=== PATIENT | female | born 1995 | race African-American/Black ===

== ENCOUNTER 2016-08-25 00:27 | Emergency (ER) | payer OTHER ==
[2016-08-25] MEDS ORDERED: OXYCODONE-ACETAMINOPHEN 5-325 MG TABLET PO ONE (02:10)
[2016-08-25] MEDS ORDERED: HYDROCODONE/ACETAMINOPHEN 5-325 MG 6 TAB/DSPK PO PRN (02:10)
[2016-08-25] MEDS ORDERED: PENICILLIN V POTASSIUM 500 MG TABLET PO ONE (02:11)
--- NOTE | 2016-08-25 02:16 | ER Document Report ---
HPI - HPI Patient complains to provider of: tooth pain Pain Level: 5 Context: Patient is a 21-year-old female comes emergency department with chief complaint of tooth pain, worse on the right lower posterior aspect, symptoms have been intermittent for several weeks. Patient unsure of fracture, denies history of the same. Pain radiates towards her right ear. She denies sore throat, neck pain, fever, injury. LMP within the past 2 weeks. - DERM Skin Color: Normal, Antares Past Medical History - General Information source: Patient - Social History Smoking Status: Never Smoker Drug Abuse: None Lives with: Family Family History: Reviewed & Not Pertinent - Medical History Medical History: Negative Renal/ Medical History: Denies: Hx Peritoneal Dialysis Surgical Hx: Negative - Immunizations Immunizations up to date: Yes Hx Diphtheria, Pertussis, Tetanus Vaccination: Yes Vertical Provider Document - CONSTITUTIONAL General Appearance: WD/WN, No Apparent Distress - Patient sleeping, easily aroused - INFECTION CONTROL TRAVEL OUTSIDE OF THE [place] IN LAST 30 DAYS: No - HEENT HEENT: Atraumatic, Normocephalic Mouth Diagram: 1 - Gumline directly over the back of this tooth, difficult to see if there is a fracture, no abscess, gumline is erythematous, no other abnormalities noted in the oral cavity - NECK Neck: Normal Inspection - RESPIRATORY Respiratory: Breath Sounds Normal, No Respiratory Distress O2 Sat by Pulse Oximetry: 100 - CARDIOVASCULAR Cardiovascular: Regular Rate, Regular Rhythm - GI/ABDOMEN Gastrointestinal: Abdomen Soft, Abdomen Non-Tender Course - Vital Signs Vital signs: Temp Pulse Resp BP Pulse Ox 98.2 F 55 L 18 132/76 H 100 08/25/16 00:43 08/25/16 00:43 08/25/16 00:43 08/25/16 00:43 08/25/16 00:43 Discharge - Discharge Clinical Impression: Pain, dental Condition: Stable Disposition: HOME, SELF-CARE Additional Instructions: Take the pain medication as prescribed, take the antibiotic to completion. Follow up with the Dentist for additional management. Return to the ED for any concerning or worsening symptoms including facial swelling. Prescriptions: Hydrocodone/Acetaminophen [[place] 5-325 mg Tablet] 1 - 2 tab PO ASDIR #15 tablet Penicillin V Potassium [Penicillin Vk 500 mg Tablet] 500 mg PO BID #20 tablet Forms: Return to Work
[2016-08-25 02:36] VITALS: BP 112/65
== END 2016-08-25 02:30 | disposition home or self-care (01) ==
LOC: ER 00:27
DX: K08.89 Other specified disorders of teeth and supporting structures (principal)
CPT/HCPCS: 99282

== ENCOUNTER 2017-01-01 10:23 | Observation (INO) | payer OTHER ==
[2017-01-01] MEDS ORDERED: NORMAL SALINE 1000 ML 1,000 ML IV PRN (11:01)
[2017-01-01] MEDS ORDERED: ONDANSETRON 4 MG TAB.RAPDIS SL ONE (11:01)
--- NOTE | 2017-01-01 11:03 | ER Document Report ---
ED Medical Screen (RME) - General Chief Complaint: Abdominal Pain Stated Complaint: VOMITING Time Seen by Provider: 01/01/17 10:29 Mode of Arrival: Ambulatory Information source: Patient TRAVEL OUTSIDE OF THE [place] IN LAST 30 DAYS: No - HPI Patient complains to provider of: Nausea, vomiting Notes: 01/01/17 11:02 Patient is a 21-year-old female presenting to the emergency room today complaining of nausea with vomiting and diarrhea 3 days with crampy abdominal pain, no urinary symptoms, no fevers, no history of chronic abdominal illness, no sick contacts, no questionable food intake - Related Data Allergies/Adverse Reactions: No Known Allergies Allergy (Verified 01/01/17 10:28) Past Medical History - Social History Chew tobacco use (# tins/day): No Frequency of alcohol use: None Drug Abuse: None Renal/ Medical History: Denies: Hx Peritoneal Dialysis Surgical Hx: Negative - Immunizations Immunizations up to date: Yes Hx Diphtheria, Pertussis, Tetanus Vaccination: Yes History of Influenza Vaccine for 12/2016 - 05/2017 Season: No Physical Exam - Vital signs Vitals: Temp Pulse Resp BP Pulse Ox 98.8 F 79 22 H 122/72 98 01/01/17 10:27 01/01/17 10:27 01/01/17 10:27 01/01/17 10:27 01/01/17 10:27 Course - Vital Signs Vital signs: Temp Pulse Resp BP Pulse Ox 98.8 F 79 22 H 122/72 98 01/01/17 10:27 01/01/17 10:27 01/01/17 10:27 01/01/17 10:27 01/01/17 10:27
[2017-01-01 12:06] LABS: ABSOLUTE BASOPHILS # (AUTO) 0.1 10^3/uL (0.0-0.2); ABSOLUTE EOSINOPHILS # (AUTO) 0.1 10^3/uL (0.0-0.6); ABSOLUTE MONOCYTES (AUTO) 1.5 10^3/uL (0.1-1.4); BASOPHILS % (AUTO) 0.7 % (0-2); EOSINOPHILS % (AUTO) 0.3 % (0-6); HEMATOCRIT 41.3 % (36.0-47.0); HEMOGLOBIN 14.4 g/dL (12.0-15.5); HGB HCT DIFFERENCE 1.9; LYMPHOCYTES % (AUTO) 12.7 % (13-45); MEAN CORPUSCULAR HEMOGLOBIN 28.6 pg (27.0-33.4); MEAN CORPUSCULAR HGB CONC 34.8 g/dL (32.0-36.0); MEAN CORPUSCULAR VOLUME 82 fl (80-97); MONOCYTES % (AUTO) 9.8 % (3-13); RED BLOOD COUNT 5.04 10^6/uL (3.72-5.28); SEGMENTED NEUTROPHILS % (AUTO) 76.5 % (42-78); WHITE BLOOD COUNT 15.7 10^3/uL (4.0-10.5)
[2017-01-01 12:22] LABS: APPEARANCE,URINE SLIGHTLY-CLOUDY; BILIRUBIN,URINE SMALL (NEGATIVE); GLUCOSE, URINE NEGATIVE (NEGATIVE); KETONES,URINE 80 mg/dL (NEGATIVE); LEUKOCYTE ESTERASE,URINE NEGATIVE (NEGATIVE); NITRITE,URINE NEGATIVE (NEGATIVE); PROTEIN,URINE 30 mg/dL (NEGATIVE)
[2017-01-01 12:30] LABS: ALBUMIN 4.4 g/dL (3.5-5.0); ALKALINE PHOSPHATASE 102 U/L (38-126); ANION GAP 12 (5-19); BILIRUBIN,DIRECT 1.2 mg/dL (0.0-0.4); BILIRUBIN,TOTAL 2.4 mg/dL (0.2-1.3); BLOOD UREA NITROGEN 15 mg/dL (7-20); CALCIUM 9.2 mg/dL (8.4-10.2); CARBON DIOXIDE 27 mmol/L (22-30); CHLORIDE 99 mmol/L (98-107); CREATININE RESULT 0.66 mg/dL (0.52-1.25); GLUCOSE 90 mg/dL (75-110); LIPASE 64.5 U/L (23-300); SODIUM 137.8 mmol/L (137-145); TOTAL PROTEIN 7.9 g/dL (6.3-8.2)
--- NOTE | 2017-01-01 12:48 | ER Document Report ---
ED General - General Chief Complaint: Abdominal Pain Stated Complaint: VOMITING Time Seen by Provider: 01/01/17 10:29 Mode of Arrival: Ambulatory TRAVEL OUTSIDE OF THE [place] IN LAST 30 DAYS: No - HPI Notes: Patient is a 21-year-old female who presents the ED with generalized abdominal pain, nausea, vomiting 4 days. Patient states that she has only been vomiting when she tries to eat food. She is able to keep some fluids down, but has been trouble with that as well. Patient states that her pain is in her lower abdomen bilaterally as well as the upper left abdomen. Patient states that the pain feels cramping. Patient states that she has not had a bowel movement in about 4 days as well. Patient was treated with antibiotics and pain medication for a dental infection which she completed about 6 days ago, but she does continue take some of the pain medication. Patient states that she has noticed that her urine is colored as compared to her normal. She denies any recent illness, insect bite, questionable foods. Patient denies any GI medical history. Patient states that she does have back pain bilaterally that is described as an ache/dull and does not radiate. Abdominal pain does not radiate otherwise. Patient denies any vaginal discharge, odor, bleeding. Last menstrual period was early November. Denies any headache, fever, neck pain, URI, sore throat, chest pain, palpitations, syncope, cough, shortness of breath , wheeze, dyspnea, diarrhea, urinary retention, dysuria, hematuria, loss of control of bowel or bladder, numbness/tingling, saddle anesthesia, muscle paralysis/weakness, or rash. - Related Data Allergies/Adverse Reactions: No Known Allergies Allergy (Verified 01/01/17 10:28) Past Medical History - General Information source: Patient - Social History Smoking Status: Never Smoker Chew tobacco use (# tins/day): No Frequency of alcohol use: None Drug Abuse: None Family History: Reviewed & Not Pertinent Renal/ Medical History: Denies: Hx Peritoneal Dialysis Surgical Hx: Negative - Immunizations Immunizations up to date: Yes Hx Diphtheria, Pertussis, Tetanus Vaccination: Yes Review of Systems - Review of Systems Notes: REVIEW OF SYSTEMS: CONSTITUTIONAL : Denies fever, chills, or sweats. Denies recent illness. EENT: Denies eye, ear, throat, or mouth pain or symptoms. Denies nasal or sinus congestion or discharge. Denies throat, tongue, or mouth swelling or difficulty swallowing. CARDIOVASCULAR: Denies chest pain. Denies palpitations or racing or irregular heart beat. Denies ankle edema. RESPIRATORY: Denies cough, cold, or chest congestion. Denies shortness of breath, difficulty breathing, or wheezing. GASTROINTESTINAL: see hpi GENITOURINARY: see hpi FEMALE GENITOURINARY: Denies vaginal bleeding, heavy or abnormal periods, irregular periods. Denies vaginal discharge or odor. MUSCULOSKELETAL: Denies back or neck pain or stiffness. Denies joint pain or swelling. SKIN: Denies rash, lesions or sores. NEUROLOGICAL: Denies confusion or altered mental status. Denies passing out or loss of consciousness. Denies dizziness or lightheadedness. Denies headache. Denies weakness or paralysis or loss of use of either side. Denies problems with gait or speech. Denies sensory loss, numbness, or tingling. ALL OTHER SYSTEMS REVIEWED AND NEGATIVE. Dictation was performed using [employer] voice recognition software Physical Exam - Vital signs Vitals: Temp Pulse Resp BP Pulse Ox 98.8 F 79 22 H 122/72 98 01/01/17 10:27 01/01/17 10:27 01/01/17 10:27 01/01/17 10:27 01/01/17 10:27 Notes: PHYSICAL EXAMINATION: GENERAL: Well-appearing, well-nourished and in no acute distress. A&Ox4 HEAD: Atraumatic, normocephalic. EYES: Pupils equal round and reactive to light, extraocular movements intact, sclera anicteric, conjunctiva are normal. ENT: Nares patent and without discharge. oropharynx clear without exudates. No tonsilar hypertrophy or erythema. Moist mucous membranes. No sinus tenderness. NECK: Normal range of motion, supple without lymphadenopathy LUNGS: Breath sounds clear to auscultation bilaterally and equal. No wheezes rales or rhonchi. HEART: Regular rate and rhythm without murmurs, rubs, gallops. ABDOMEN: Soft, nondistended abdomen. No guarding, no rebound. No masses appreciated. Normal bowel sounds present. No CVA tenderness bilaterally. + generalized tenderness, mild. No rigidity. Musculoskeletal: LE's b/l: FROM to passive/active. Strength 5+/5. No focal deficit Back: FROM to passive/active. Strength 5+/5. No erythema, swelling, abscess, discharge, streaks, step-offs, or deformity noted. + mild tenderness to the soft tissue throughout the lower back b/l. Extremities: No cyanosis, clubbing, or edema b/l. Peripheral pulses 2+. Capillary refill less than 3 seconds. NEUROLOGICAL: Normal speech, normal gait. Normal sensory, motor exams PSYCH: Normal mood, normal affect. SKIN: Warm, Dry, normal turgor, no rashes or lesions noted. Course - Re-evaluation Re-evalutation: 01/01/17 17:11 Pt with abd pain, n/v Pt has not vomited in the ED LFT's very high Elevated wbc Reviewed with Dr. Molina INR pending Ammonia pending will call Dr. Molina once INR result returns. 01/01/17 17:[address] Molina, coags wnl. admit to hospital and he can consult. 01/01/17 17:[address] Nunez who accepted patient for admission. - Vital Signs Vital signs: Temp Pulse Resp BP Pulse Ox 98.8 F 79 22 H 122/72 98 01/01/17 10:27 01/01/17 10:27 01/01/17 10:27 01/01/17 10:27 01/01/17 10:27 - Laboratory Result Diagrams: 01/01/17 11:50 01/01/17 11:50 Laboratory results interpreted by me: 01/01/17 01/01/17 01/01/17 11:31 11:50 11:50 WBC 15.7 H Lymphocytes % 12.7 L Absolute Neutrophils 12.0 H Absolute Monocytes 1.5 H PT Total Bilirubin 2.4 H Direct Bilirubin 1.2 H AST 1661 H ALT 2133 H Urine Protein 30 H Urine Ketones 80 H Urine Bilirubin SMALL H Urine Urobilinogen 4.0 H Acetaminophen 01/01/17 01/01/17 11:50 16:32 WBC Lymphocytes % Absolute Neutrophils Absolute Monocytes PT 17.4 H Total Bilirubin Direct Bilirubin AST ALT Urine Protein Urine Ketones Urine Bilirubin Urine Urobilinogen Acetaminophen < 10 L Discharge - Discharge Clinical Impression: Elevated liver function tests Abdominal pain Qualifiers: Abdominal location: unspecified location Qualified Code(s): R10.9 - Unspecified abdominal pain Condition: Stable Disposition: ADMITTED INPATIENT Admitting Provider: Hospitalist - Dr. Nunez Unit Admitted: Medical Floor
[2017-01-01 12:57] LABS: ALANINE AMINOTRANSFERASE 2133 U/L (9-52); ASPARTATE AMINO TRANSFERASE 1661 U/L (14-36)
--- NOTE | 2017-01-01 13:56 | RADIOLOGY REPORT (SQ) ---
EXAM DESCRIPTION: ACUTE ABDOMEN SERIES COMPLETED DATE/TIME: 01/01/2017 1:43 pm REASON FOR STUDY: abdominal pain, n/v COMPARISON: None. NUMBER OF VIEWS: Three views. TECHNIQUE: Frontal chest, supine abdomen and upright/decubitus abdomen radiographic images acquired. LIMITATIONS: None. FINDINGS: CHEST: Lungs clear of infiltrates. FREE AIR: None. No abnormal gas collections. BOWEL GAS PATTERN: Nonobstructive pattern. No dilated loops or air fluid levels. CALCIFICATIONS: No suspicious calcifications. HARDWARE: None in the abdomen. SOFT TISSUES: No gross mass or suggestion of organomegaly. BONES: No acute fracture. No worrisome bone lesions. OTHER: No other significant finding. IMPRESSION: NO RADIOGRAPHIC EVIDENCE FOR ACUTE ABDOMINAL DISEASE. TECHNICAL DOCUMENTATION: JOB ID: [id number] Systems- All Rights Reserved
[2017-01-01 14:31] LABS: URINE BARBITURATES SCREEN NEGATIVE; URINE METHADONE SCREEN NEGATIVE; URINE OPIATES LOW NEGATIVE; URINE PHENCYCLIDINE SCREEN NEGATIVE
--- NOTE | 2017-01-01 14:49 | RADIOLOGY REPORT (SQ) ---
EXAM DESCRIPTION: U/S ABDOMEN LIMITED W/O DOP COMPLETED DATE/TIME: 01/01/2017 2:31 pm REASON FOR STUDY: abdominal pain, very high LFT's, elevated bili COMPARISON: None. TECHNIQUE: Dynamic and static grayscale images acquired of the abdomen and recorded on PACS. Additio nal selected color Doppler and spectral images recorded. LIMITATIONS: None. FINDINGS: PANCREAS: No masses. Visualized pancreatic duct normal caliber. LIVER: Mild hepatomegaly. 17.2 cm. Normal echotexture. LIVER VASCULATURE: Normal directional flow of the main portal vein and hepatic veins. GALLBLADDER: No stones. Normal wall thickness. No pericholecystic fluid. ULTRASOUND-DETECTED MCDERMOTT'S SIGN: Negative. INTRAHEPATIC DUCTS AND COMMON DUCT: CBD and intrahepatic ducts normal caliber. No filling defects. INFERIOR VENA CAVA: Normal flow. AORTA: No aneurysm. RIGHT KIDNEY: Normal size, 11.7 cm. Normal echogenicity. No solid or suspicious masses. No hydroneph rosis. No calcifications. PERITONEAL AND RIGHT PLEURAL SPACE: No ascites or effusions. OTHER: No other significant findings. IMPRESSION: Mild hepatomegaly with no acute abnormality in the right upper quadrant. TECHNICAL DOCUMENTATION: JOB ID: [id number] [employer]- All Rights Reserved
[2017-01-01 16:56] LABS: PARTIAL THROMBOPLASTIN TIME 33.8 SEC (23.5-35.8); PROTHROMBIN TIME 17.4 SEC (11.4-15.4)
[2017-01-01] MEDS ORDERED: ONDANSETRON HCL INJ/PF 4 MG/2 ML SDV IV ONE (17:14)
[2017-01-01] MEDS ORDERED: ONDANSETRON HCL INJ/PF 4 MG/2 ML SDV IV PRN (18:00)
--- NOTE | 2017-01-01 18:41 | PDOC H&P ---
History of Present Illness Admission Date/PCP: 01/01/17 17:36 Patient complains of: ABD pain and Nausea History of Present Illness: DOLORES GUADALUPE is a 21 year old female presents with complaint of pain. Patient reports that she has been taking Tylenol for approximately 2 days but then stopped patient states that she is taking 500 mg 4 tablets about every 6 hours patient states that the Tylenol did not seem to help that much therefore she started taking Motrin patient reports that she was taking 800 mg tablets of Motrin that belonged to somebody else. Patient reports that she was taken for 100 mg Motrin as every 2-4 hours due to dental pain patient states that after she had her wisdom tooth extracted she was given tramadol but she ran out of tramadol and continue to take the Motrin take Motrin 800 mg 4 tablets every 2-4 hours. Patient states that she was taking Motrin prior to having her wisdom tooth extracted and after her wisdom tooth was extracted due to the severity of pain. Patient states that currently she has been very nauseated and has not been able to eat for the last 4-5 days. Patient states that she is having significant abdominal pain. Patient reports she has not had a bowel movement for the last 4 days. Patient states that she has vomited but has not noted any blood in her vomit. ER stated that they had contacted GI and that he has agreed to see patient in house. Past Surgical History Past Surgical History: Reports: Other - [place] tooth extraction Social History Smoking Status: Never Smoker Family History Family History: Reviewed & Not Pertinent Parental Family History Reviewed: Yes Children Family History Reviewed: Yes Sibling(s) Family History Reviewed.: Yes Medication/Allergy Allergies/Adverse Reactions: No Known Allergies Allergy (Verified 01/01/17 10:28) Review of Systems Constitutional: ABSENT: chills, fever(s), headache(s), weight gain, weight loss Eyes: ABSENT: visual disturbances Ears: ABSENT: hearing changes Cardiovascular: ABSENT: chest pain, dyspnea on exertion, edema, orthropnea, palpitations Gastrointestinal: PRESENT: abdominal pain, nausea, vomiting Genitourinary: ABSENT: dysuria, hematuria Musculoskeletal: ABSENT: joint swelling Integumentary: ABSENT: rash, wounds Neurological: ABSENT: abnormal gait, abnormal speech, confusion, dizziness, focal weakness, syncope Psychiatric: ABSENT: anxiety, depression, homidical ideation, suicidal ideation Endocrine: ABSENT: cold intolerance, heat intolerance, polydipsia, polyuria Hematologic/Lymphatic: ABSENT: easy bleeding, easy bruising Physical Exam Vital Signs: Temp Pulse Resp BP Pulse Ox 98.8 F 79 22 H 122/72 98 01/01/17 10:27 01/01/17 10:27 01/01/17 10:27 01/01/17 10:27 01/01/17 10:27 General appearance: PRESENT: no acute distress, well-developed, well-nourished Head exam: PRESENT: atraumatic, normocephalic Eye exam: PRESENT: conjunctiva pink, EOMI. ABSENT: scleral icterus Ear exam: PRESENT: normal external ear exam Mouth exam: PRESENT: moist, tongue midline Neck exam: ABSENT: carotid bruit, JVD, lymphadenopathy, thyromegaly Respiratory exam: PRESENT: clear to auscultation astrid. ABSENT: rales, rhonchi, wheezes Cardiovascular exam: PRESENT: RRR. ABSENT: diastolic murmur, rubs, systolic murmur Pulses: PRESENT: normal dorsalis pedis pul Vascular exam: PRESENT: normal capillary refill GI/Abdominal exam: PRESENT: diminished bowel sounds, distended, hypoactive bowel sounds, tenderness - +Diffuse abd tenderness Rectal exam: PRESENT: deferred Extremities exam: PRESENT: full ROM. ABSENT: calf tenderness, clubbing, pedal edema Neurological exam: PRESENT: alert, awake, oriented to person, oriented to place , oriented to time, oriented to situation, CN II-XII grossly intact. ABSENT: motor sensory deficit Psychiatric exam: PRESENT: appropriate affect, normal mood. ABSENT: homicidal ideation, suicidal ideation Skin exam: PRESENT: dry, intact, warm. ABSENT: cyanosis, rash Results Impressions: Acute Abdomen Series 01/01/17 12:42 IMPRESSION: NO RADIOGRAPHIC EVIDENCE FOR ACUTE ABDOMINAL DISEASE. Abdomen Ultrasound 01/01/17 13:41 IMPRESSION: Mild hepatomegaly with no acute abnormality in the right upper quadrant. Assessment & Plan - Diagnosis (1) Hepatitis Is this a current diagnosis for this admission?: Yes Plan: Secondary to Ibuprofen: Supportive care for now. (2) Abdominal pain Qualifiers: Abdominal location: unspecified location Qualified Code(s): R10.9 - Unspecified abdominal pain Is this a current diagnosis for this admission?: Yes Plan: Secondary to Ibuprofen: Will place on Protonix. GI consult placed. (3) Accidental ibuprofen overdose Is this a current diagnosis for this admission?: Yes Plan: No Ibuprofen. Pt has been to not to use Ibuprofen. (4) Total bilirubin, elevated Is this a current diagnosis for this admission?: Yes Plan: Will continue to monitor. (5) Elevated liver function tests Is this a current diagnosis for this admission?: Yes Plan: Secondary to Ibuprofen: GI to see pt. INR 1.33 (6) Gastritis Is this a current diagnosis for this admission?: Yes Plan: Protonix 40mg Q12 (7) DVT prophylaxis Is this a current diagnosis for this admission?: Yes Plan: SCDs - Time Time Spent: 30 to 50 Minutes Anticipated discharge: Home
--- NOTE | 2017-01-01 19:44 | PDOC CONSULTATION ---
Consultation Consult Date: 01/01/17 Attending physician:: PARIS GARLAND Consult reason:: 1. Abdominal pain. 2. Abnormal LFT's History of Present Illness Admission Date/PCP: 01/01/17 17:36 History of Present Illness: I was contacted by the ED physician patient had presented to the ED with complaints of abdominal pain she had been taking a combination of tylenol as well as NSAIDS patient noted to have an elevated total bilirubin also had ultrasound that did not show any dilated bile ducts patient is having epigastric pain she has been taking a combination of tylenol, NSAIDS following wisdom teeth removal hepatitis panels are pending she does deny any melena however appetite is poor there is no hematemesis patient states has early satiety I have been asked to see this patient in consult Past Medical History Psychiatric Medical History: Denies: Depression Past Surgical History Past Surgical History: Reports: Other - [place] tooth extraction Social History Smoking Status: Never Smoker Frequency of Alcohol Use: None Hx Recreational Drug Use: No Hx Prescription Drug Abuse: No - Advance Directive Resuscitation Status: Full Code Family History Family History: Reviewed & Not Pertinent Parental Family History Reviewed: Yes Children Family History Reviewed: Unknown Sibling(s) Family History Reviewed.: Unknown Medication/Allergy Home Medications: No Home Medications 01/01/17 Allergies/Adverse Reactions: No Known Allergies Allergy (Verified 01/01/17 10:28) Review of Systems Constitutional: ABSENT: fever(s), headache(s), night sweats, weakness Eyes: ABSENT: visual disturbances Ears: ABSENT: hearing changes Nose, Mouth, and Throat: PRESENT: mouth pain. ABSENT: sore throat Cardiovascular: ABSENT: edema, orthropnea, palpitations Respiratory: ABSENT: dyspnea, hemoptysis Gastrointestinal: PRESENT: heartburn, nausea. ABSENT: diarrhea, hematochezia, melena Genitourinary: ABSENT: dysuria, hematuria Musculoskeletal: ABSENT: deformity, joint swelling Integumentary: ABSENT: lesions, pruritus Neurological: ABSENT: syncope, tingling, tremor(s), vertigo Endocrine: ABSENT: polydipsia, polyphagia, polyuria Hematologic/Lymphatic: ABSENT: easy bruising Physical Exam Vital Signs: Temp Pulse Resp BP Pulse Ox 99.1 F 20 L 18 138/80 H 99 01/01/17 18:35 01/01/17 18:35 01/01/17 18:35 01/01/17 18:35 01/01/17 18:35 Intake & Output 12/31/16 01/01/17 01/02/17 06:59 06:59 06:59 Weight 87 kg General appearance: PRESENT: mild distress, well-developed, well-nourished Head exam: PRESENT: atraumatic, normocephalic Eye exam: PRESENT: EOMI, PERRLA. ABSENT: nystagmus, periorbital swelling, scleral icterus Mouth exam: PRESENT: moist, neck supple Throat exam: ABSENT: tonsillar exudate, tonsillogmegaly Neck exam: ABSENT: meningismus, tenderness, thyromegaly Respiratory exam: PRESENT: symmetrical, unlabored. ABSENT: tachypnea, wheezes Cardiovascular exam: PRESENT: RRR, +S1, +S2 GI/Abdominal exam: PRESENT: soft, tenderness. ABSENT: Borja's sign, rebound, rigid Extremities exam: ABSENT: joint swelling Musculoskeletal exam: PRESENT: full ROM Neurological exam: PRESENT: oriented to time, oriented to situation, reflexes normal, CN II-XII grossly intact Skin exam: PRESENT: normal color. ABSENT: mottled, pallor, petechiae, urticaria , vesicles Results Laboratory Results: 01/01/17 18:36 Ammonia 12.9 Impressions: Acute Abdomen Series 01/01/17 12:42 IMPRESSION: NO RADIOGRAPHIC EVIDENCE FOR ACUTE ABDOMINAL DISEASE. Abdomen Ultrasound 01/01/17 13:41 IMPRESSION: Mild hepatomegaly with no acute abnormality in the right upper quadrant. Assessment & Plan - Diagnosis (1) Abdominal pain Qualifiers: Abdominal location: unspecified location Qualified Code(s): R10.9 - Unspecified abdominal pain Is this a current diagnosis for this admission?: Yes Plan: could have peptic ulcer disease due to NSAID use may need EGD I will speak to the patient about this to see if she wants to proceed Risks, benefits and alternatives are discussed with the patient in detail further recommendations to follow (2) Elevated liver function tests Is this a current diagnosis for this admission?: Yes Plan: likely due to combination of tylenol and NSAID use will monitor LFT'w with hydration PT INR in normal range tylenol levels reportedly normal viral hepatitis studies are pending continue to follow LFT's - Time Time Spent: 50 to 70 Minutes
[2017-01-01] MEDS: PANTOPRAZOLE SODIUM 40 MG VIAL IV SCH (22:01)
[2017-01-02 05:53] LABS: ABSOLUTE BASOPHILS # (AUTO) 0.1 10^3/uL (0.0-0.2); ABSOLUTE EOSINOPHILS # (AUTO) 0.3 10^3/uL (0.0-0.6); ABSOLUTE LYMPHOCYTES (AUTO) 3.1 10^3/uL (0.5-4.7); ABSOLUTE MONOCYTES (AUTO) 1.8 10^3/uL (0.1-1.4); ABSOLUTE NEUT (AUTO) 8.4 10^3/uL (1.7-8.2); BASOPHILS % (AUTO) 0.7 % (0-2); EOSINOPHILS % (AUTO) 1.9 % (0-6); HEMATOCRIT 35.7 % (36.0-47.0); HEMOGLOBIN 12.7 g/dL (12.0-15.5); HGB HCT DIFFERENCE 2.4; LYMPHOCYTES % (AUTO) 22.8 % (13-45); MEAN CORPUSCULAR HEMOGLOBIN 28.7 pg (27.0-33.4); MEAN CORPUSCULAR HGB CONC 35.5 g/dL (32.0-36.0); MEAN CORPUSCULAR VOLUME 81 fl (80-97); MONOCYTES % (AUTO) 13.4 % (3-13); RED BLOOD COUNT 4.42 10^6/uL (3.72-5.28); RED CELL DISTRIBUTION WIDTH 13.3 % (11.5-14.0); SEGMENTED NEUTROPHILS % (AUTO) 61.2 % (42-78); WHITE BLOOD COUNT 13.7 10^3/uL (4.0-10.5)
[2017-01-02 06:00] LABS: ALBUMIN 3.3 g/dL (3.5-5.0); ALKALINE PHOSPHATASE 80 U/L (38-126); ANION GAP 10 (5-19); BILIRUBIN,DIRECT 1.1 mg/dL (0.0-0.4); BILIRUBIN,TOTAL 2.1 mg/dL (0.2-1.3); BLOOD UREA NITROGEN 10 mg/dL (7-20); CALCIUM 8.4 mg/dL (8.4-10.2); CARBON DIOXIDE 26 mmol/L (22-30); CHLORIDE 102 mmol/L (98-107); CREATININE RESULT 0.66 mg/dL (0.52-1.25); GLUCOSE 79 mg/dL (75-110); POTASSIUM 3.4 mmol/L (3.6-5.0); SODIUM 138.3 mmol/L (137-145)
[2017-01-02 06:14] LABS: ALANINE AMINOTRANSFERASE 1716 U/L (9-52); ASPARTATE AMINO TRANSFERASE 815 U/L (14-36)
[2017-01-02] MEDS: PANTOPRAZOLE SODIUM 40 MG VIAL IV SCH (09:27)
--- NOTE | 2017-01-02 10:41 | RADIOLOGY REPORT (SQ) ---
EXAM DESCRIPTION: CT ABD/PELVIS NO ORAL OR IV COMPLETED DATE/TIME: 01/01/2017 9:41 pm REASON FOR STUDY: EPIGASTRIC ABD Pain COMPARISON: None. TECHNIQUE: CT scan of the abdomen and pelvis performed without intravenous or oral contrast. Images reviewed with lung, soft tissue, and bone windows. Reconstructed coronal and sagittal MPR images revi ewed. All images stored on PACS. All CT scanners at this facility use dose modulation, iterative reconstruction, and/or weight based d osing when appropriate to reduce radiation dose to as low as reasonably achievable (ALARA). [facility]: Dose Right [facility]: CareDose [facility]: Dose Right [facility]: Teradose 4D [facility]: Smart Smart Lunches RADIATION DOSE: Up-to-date CT equipment and radiation dose reduction techniques were employed. CTDIv ol: 12.1 mGy. DLP: 650 mGy-cm.mGy. LIMITATIONS: None. FINDINGS: LOWER CHEST: No significant findings. No nodules or infiltrates. NON-CONTRASTED LIVER, SPLEEN, ADRENALS: Evaluation limited by lack of IV contrast. No identified sign ificant masses. PANCREAS: No masses. No peripancreatic inflammatory changes. GALLBLADDER: No identified stones by CT criteria. No inflammatory changes to suggest cholecystitis. RIGHT KIDNEY AND URETER: No suspicious masses. Assessment limited by lack of IV contrast. No signif icant calcifications. No hydronephrosis or hydroureter. LEFT KIDNEY AND URETER: No suspicious masses. Assessment limited by lack of IV contrast. No signifi cant calcifications. No hydronephrosis or hydroureter. AORTA AND RETROPERITONEUM: No aneurysm. No retroperitoneal masses or adenopathy. BOWEL AND PERITONEAL CAVITY: No obvious masses or inflammatory changes. No free fluid. APPENDIX: Normal. PELVIS, BLADDER, AND ABDOMINAL WALL:The urinary bladder is empty cannot be evaluated. There is the a ppearance of a 4 cm right ovarian cyst. BONES: No significant findings. OTHER: No other significant finding. IMPRESSION: There is a 4 cm right ovarian cyst. No other abnormality is seen. COMMENT: Quality ID # [id number]: Final reports with documentation of one or more dose reduction techniques (e.g., Automated exposure control, adjustment of the mA and/or kV according to patient size, use of iterative reconstruction technique) TECHNICAL DOCUMENTATION: JOB ID: [id number]- All Rights Reserved
[2017-01-02] MEDS ORDERED: ONDANSETRON HCL INJ/PF 4 MG/2 ML SDV ONE (13:12)
[2017-01-02] MEDS ORDERED: DIPHENHYDRAMINE HCL 50 MG/ML VIAL ONE (13:12)
[2017-01-02] MEDS ORDERED: NALOXONE HCL INJ/PF 0.4 MG/1 ML SDV ONE (13:12)
[2017-01-02] MEDS ORDERED: MIDAZOLAM 2 MG/2 ML INJ ONE (13:13)
[2017-01-02] MEDS ORDERED: EPINEPHRINE INJ 1 MG/10 ML DISP.SYRIN ONE (13:14)
[2017-01-02] MEDS ORDERED: FLUMAZENIL INJ 0.5 MG/5 ML VIAL ONE (13:14)
[2017-01-02] MEDS ORDERED: GLUCAGON,HUMAN RECOMB 1 MG INJ ONE (13:14)
[2017-01-02] MEDS: MIDAZOLAM 2 MG/2 ML INJ ONE ×3 (13:50→13:57)
[2017-01-02] MEDS: FENTANYL CITRATE INJ/PF 100 MCG/2 ML AMPUL ONE ×2 (13:52→13:54)
[2017-01-02] MEDS ORDERED: POTASSIUM CHLORIDE 10 MEQ TABLET.SA PO ONE (14:00)
[2017-01-02] MEDS ORDERED: ONDANSETRON HCL INJ/PF 4 MG/2 ML SDV IV PRN (15:00)
--- NOTE | 2017-01-02 15:22 | Operative Report ---
Operative Report DATE OF SURGERY: 01/02/17 Operative Report: The risks benefits and alternatives of the procedure explained to the patient in detail and informed consent is obtained.A GIF Olympus video scope was inserted into the patient's mouth and hypopharynx, the esophagus is identified intubated and insufflated ,the scope was then advanced through the esophagus stomach and duodenum, retroflexion maneuver is done, the esophagus stomach and first and second portions of the duodenum examined PREOPERATIVE DIAGNOSIS: Odynophagia, epigastric pain POSTOPERATIVE DIAGNOSIS: Gastritis status post biopsy rule out Helicobacter pylori OPERATION: EGD with biopsy SURGEON: PARIS GARLAND ANESTHESIA: Moderate Sedation - 6 mg of Versed, 100 mcg of fentanyl. Conscious sedation monitoring time 30 minutes. TISSUE REMOVED OR ALTERED: Gastric mucosal specimen obtained to rule out Helicobacter pylori COMPLICATIONS: None. ESTIMATED BLOOD LOSS: None. INTRAOPERATIVE FINDINGS: As described above. PROCEDURE: Patient tolerated procedure well. She sent back to her room in good condition. No immediate postprocedure comp occasions are noted. Her diet can be resumed. Her liver functions are decreasing. If there are no other issues she likely can be discharged with outpatient follow -up. We will wait on biopsies.
[2017-01-02 17:30] VITALS: BP 125/62
--- NOTE | 2017-01-03 17:52 | PDOC DISCHARGE SUMMARY ---
General - Admit/Disc Date/PCP Admission Date/Primary Care Provider: 01/01/17 17:36 Discharge Date: 01/02/17 - Discharge Diagnosis (1) Hepatitis Is this a current diagnosis for this admission?: Yes Summary: Secondary to NSAIDs and Tylenol Accidental Overdose: Patient's liver enzymes were improving. Patient was told to not use NSAIDs or Tylenol. (2) Abdominal pain Is this a current diagnosis for this admission?: Yes Summary: Secondary to gastritis: Patient had EGD that demonstrated gastritis. Patient was placed on PPI. (3) Accidental ibuprofen overdose Is this a current diagnosis for this admission?: Yes Summary: Patient told not to use NSAIDs or Tylenol. (4) Total bilirubin, elevated Is this a current diagnosis for this admission?: Yes Summary: Secondary to accidental ibuprofen and Tylenol overdose: Patient told not to use Tylenol or NSAIDs. Patient's synthetic function was intact. (5) Elevated liver function tests Is this a current diagnosis for this admission?: Yes Summary: Secondary to accidental Tylenol and ibuprofen overdose. Patient was told not to use Tylenol or ibuprofen. (6) Gastritis Is this a current diagnosis for this admission?: Yes Summary: Patient had EGD that demonstrated gastritis. Patient was placed on PPI. - Additional Information Resuscitation Status: Full Code Discharge Diet: Regular Discharge Activity: Activity As Tolerated Home Medications: Famotidine [Pepcid 40 mg Tablet] 40 mg PO BID #60 tablet 01/02/17 History of Present Illness History of Present Illness: DOLORES GUADALUPE is a 21 year old female presents with complaint of pain. Patient reports that she has been taking Tylenol for approximately 2 days but then stopped patient states that she is taking 500 mg 4 tablets about every 6 hours patient states that the Tylenol did not seem to help that much therefore she started taking Motrin patient reports that she was taking 800 mg tablets of Motrin that belonged to somebody else. Patient reports that she was taken for 100 mg Motrin as every 2-4 hours due to dental pain patient states that after she had her wisdom tooth extracted she was given tramadol but she ran out of tramadol and continue to take the Motrin take Motrin 800 mg 4 tablets every 2-4 hours. Patient states that she was taking Motrin prior to having her wisdom tooth extracted and after her wisdom tooth was extracted due to the severity of pain. Patient states that currently she has been very nauseated and has not been able to eat for the last 4-5 days. Patient states that she is having significant abdominal pain. Patient reports she has not had a bowel movement for the last 4 days. Patient states that she has vomited but has not noted any blood in her vomit. ER stated that they had contacted GI and that he has agreed to see patient in house. Hospital Course Hospital Course: Patient was admitted to the hospital where she was evaluated for abdominal pain and elevated liver enzymes. Patient had reported that she accidentally took too much ibuprofen and Tylenol. Patient reported that she had recently had her wisdom tooth extracted and was using these medications to help control pain. Patient had an EGD that demonstrated gastritis and was discharged home on PPI. Patient's liver enzymes were trending down during hospitalization and patient was able to tolerate food. Patient was told not to use Tylenol or ibuprofen in the future. Physical Exam Vital Signs: Temp Pulse Resp BP Pulse Ox 98.0 F 52 L 18 125/62 100 01/02/17 17:25 01/02/17 17:25 01/02/17 17:25 01/02/17 17:25 01/02/17 17:25 Intake & Output 01/02/17 01/03/17 01/04/17 06:59 06:59 06:59 Intake Total 360 300 Output Total 300 Balance 60 300 Weight 87 kg General appearance: PRESENT: no acute distress, well-developed, well-nourished Head exam: PRESENT: atraumatic, normocephalic Eye exam: PRESENT: conjunctiva pink, EOMI. ABSENT: scleral icterus Ear exam: PRESENT: normal external ear exam Mouth exam: PRESENT: moist, tongue midline Neck exam: ABSENT: carotid bruit, JVD, lymphadenopathy, thyromegaly Respiratory exam: PRESENT: clear to auscultation astrid. ABSENT: rales, rhonchi, wheezes Cardiovascular exam: PRESENT: RRR. ABSENT: diastolic murmur, rubs, systolic murmur Pulses: PRESENT: normal dorsalis pedis pul Vascular exam: PRESENT: normal capillary refill GI/Abdominal exam: PRESENT: normal bowel sounds, soft, tenderness - Diffuse but much improved from day prior Rectal exam: PRESENT: deferred Extremities exam: PRESENT: full ROM. ABSENT: calf tenderness, clubbing, pedal edema Neurological exam: PRESENT: alert, awake, oriented to person, oriented to place , oriented to time, oriented to situation, CN II-XII grossly intact. ABSENT: motor sensory deficit Psychiatric exam: PRESENT: appropriate affect, normal mood. ABSENT: homicidal ideation, suicidal ideation Skin exam: PRESENT: dry, intact, warm. ABSENT: cyanosis, rash Results Laboratory Results: 01/02/17 05:03 01/02/17 05:03 Impressions: Abdomen/Pelvis CT 01/01/17 00:00 IMPRESSION: There is a 4 cm right ovarian cyst. No other abnormality is seen. Acute Abdomen Series 01/01/17 12:42 IMPRESSION: NO RADIOGRAPHIC EVIDENCE FOR ACUTE ABDOMINAL DISEASE. Abdomen Ultrasound 01/01/17 13:41 IMPRESSION: Mild hepatomegaly with no acute abnormality in the right upper quadrant.
== END 2017-01-02 18:38 | disposition home or self-care (01) ==
LOC: ER 10:23 → EH 17:36 → INTOOBSV 17:36 → 5 18:34
PROVIDERS: ADMIT Internal Medicine; ATTEND Internal Medicine
PROC: 0DB68ZX Excision of Stomach, Via Natural or Artificial Opening Endoscopic, Diagnostic (ICD-10-PCS; principal; 2017-01-02 13:30)
DX: T39.1X1A Poisoning by 4-Aminophenol derivatives, accidental (unintentional), initial encounter (principal); T39.311A Poisoning by propionic acid derivatives, accidental (unintentional), initial encounter; K71.6 Toxic liver disease with hepatitis, not elsewhere classified; E80.6 Other disorders of bilirubin metabolism; K29.50 Unspecified chronic gastritis without bleeding; B96.81 Helicobacter pylori [H. pylori] as the cause of diseases classified elsewhere; K13.79 Other lesions of oral mucosa; Z98.818 Other dental procedure status
CPT/HCPCS: 99285; 96374; 43239; 36415 ×2; 82140; 83605; 83690; 80307 ×2; 84703; 85025 ×2; 85610; 85730; 80053 ×2; 81001; 80074; 88342 ×2; 88305 ×2; 74022; 76705; 74176; J2250; S0119; J3010; S0164 ×2; J3490 ×2; J2405; J7030; J0171; J1200; J1610; J2310

== ENCOUNTER 2017-08-12 12:06 | Emergency (ER) | payer OTHER ==
[2017-08-12 12:16] VITALS: BP 115/75
[2017-08-12] MEDS ORDERED: IBUPROFEN 800 MG TABLET PO ONE (12:23)
[2017-08-12] MEDS ORDERED: PENICILLIN V POTASSIUM 500 MG TABLET PO ONE (12:23)
--- NOTE | 2017-08-12 12:26 | ER Document Report ---
HPI - HPI Patient complains to provider of: Dental infection Onset: Other - 6 months off and on Onset/Duration: Worse Quality of pain: Achy Pain Level: 5 Context: She complains of dental infection off and on for the past 6 months that worsened over the past 2 weeks. Patient denies any fever. Associated Symptoms: Other - Dental infection. denies: Fever Exacerbated by: Denies Relieved by: Denies Similar symptoms previously: Yes Recently seen / treated by doctor: No - ROS ROS below otherwise negative: Yes Systems Reviewed and Negative: Yes All other systems reviewed and negative - CONSTITUTIONAL Constitutional: DENIES: Fever, Chills - GASTROINTESTINAL Gastrointestinal: DENIES: Nausea - REPRODUCTIVE Reproductive: DENIES: : - MUSCULOSKELETAL Musculoskeletal: DENIES: Back Pain, Neck Pain - DERM Skin Color: Normal Skin Problems: None Past Medical History - General Information source: Patient - Social History Smoking Status: Never Smoker Frequency of alcohol use: None Drug Abuse: None Occupation: tax accounting assistant Lives with: Family Family History: Reviewed & Not Pertinent - Medical History Medical History: Negative Neurological Medical History: Denies: Hx Seizures Renal/ Medical History: Denies: Hx Peritoneal Dialysis Psychiatric Medical History: Denies: Hx Depression Surgical Hx: Negative Past Surgical History: Reports: Other - [place] tooth extraction. Denies: Hx Hysterectomy - Immunizations Immunizations up to date: Yes Hx Diphtheria, Pertussis, Tetanus Vaccination: Yes Vertical Provider Document - CONSTITUTIONAL Agree With Documented VS: Yes Exam Limitations: No Limitations General Appearance: WD/WN, No Apparent Distress - INFECTION CONTROL TRAVEL OUTSIDE OF THE [place] IN LAST 30 DAYS: No - HEENT HEENT: Atraumatic, Normocephalic Mouth Diagram: 1 - tender gingival swelling, no trismus, no sublingual or submental swelling - NECK Neck: Normal Inspection, Supple - RESPIRATORY Respiratory: No Respiratory Distress - MUSCULOSKELETAL/EXTREMETIES Musculoskeletal/Extremeties: MAEW - NEURO Level of Consciousness: Awake, Alert, Appropriate Motor/Sensory: No Motor Deficit - DERM Integumentary: Warm, Dry Course - Vital Signs Vital signs: Temp Pulse Resp BP Pulse Ox 98.1 F 74 18 115/75 97 08/12/17 12:14 08/12/17 12:14 08/12/17 12:14 08/12/17 12:14 08/12/17 12:14 Discharge - Discharge Clinical Impression: Toothache Condition: Stable Disposition: HOME, SELF-CARE Instructions: Oral Narcotic Medication (OM), Penicillin V K (OM), Toothache ( [facility]) Additional Instructions: Return immediately for any new or worsening symptoms Followup with your dental care provider, call tomorrow to make a followup appointment Prescriptions: Acetaminophen with Codeine [Acetaminophen-Cod #3 Tablet] 1 each PO Q6 PRN #15 tablet PRN Reason: Naproxen [Naprosyn 250 Nmg Tablet] 1 tab PO BID #14 tablet Penicillin V Potassium [Penicillin Vk 500 mg Tablet] 500 mg PO BID #20 tablet Forms: Return to Work Referrals: [facility] [Provider Group] - Follow up as needed
== END 2017-08-12 12:34 | disposition home or self-care (01) ==
LOC: ER 12:06
DX: K08.9 Disorder of teeth and supporting structures, unspecified (principal)
CPT/HCPCS: 99282

== ENCOUNTER 2019-01-22 11:03 | Emergency (ER) | payer OTHER ==
[2019-01-22] MEDS ORDERED: ACETAMINOPHEN SOLN 325 MG/10.15 ML UDCUP PO ONE (12:22)
[2019-01-22] MEDS ORDERED: KETOROLAC TROMETHAMINE INJ/PF 30 MG/1 ML SDV IM ONE (12:23)
[2019-01-22] MEDS ORDERED: LIDOCAINE 5% (700 MG) TRANSDERMAL ADH..PATCH TP ONE (12:23)
--- NOTE | 2019-01-22 12:26 | ER Document Report ---
HPI - HPI Patient complains to provider of: Left flank pain Time Seen by Provider: 01/22/19 12:14 Pain Level: 5 Context: Healthy 23-year-old female presents the emergency department with chief complaint of left lower axillary rib pain after her child open the door and a doorknob struck her last night. Patient states that she was in the bathroom doing her hair and her arms were over her head when her kid barged and and jammed a doorknob in your side. Patient trying to tough it out but decided that the pain was too much and sought care in the emergency department. She denies shortness of breath, denies hematuria, denies chest pain. No other complaints - REPRODUCTIVE LMP: 12/28/18 Reproductive: DENIES: : Past Medical History - Social History Smoking Status: Never Smoker Chew tobacco use (# tins/day): No Frequency of alcohol use: None Drug Abuse: None Family History: Reviewed & Not Pertinent Patient has suicidal ideation: No Patient has homicidal ideation: No Neurological Medical History: Denies: Hx Seizures Renal/ Medical History: Denies: Hx Peritoneal Dialysis Psychiatric Medical History: Denies: Hx Depression Past Surgical History: Reports: Other - [place] tooth extraction. Denies: Hx Hysterectomy - Immunizations Immunizations up to date: Yes Hx Diphtheria, Pertussis, Tetanus Vaccination: Yes Vertical Provider Document - CONSTITUTIONAL Notes: PHYSICAL EXAMINATION: Reviewed vital signs and charting by RN GENERAL: Alert, interacts well. No acute distress. HEAD: Normocephalic, atraumatic. EYES: Pupils equal and round. Extraocular movements intact. ENT: Oral mucosa moist, tongue midline. NECK: Full range of motion. Trachea midline. LUNGS: Clear to auscultation bilaterally, no wheezes, rales, or rhonchi. No respiratory distress. HEART: Regular rate and rhythm. No murmur ABDOMEN: soft, non-tender. No distention. Bowel sounds present BACK: Acute tenderness to light palpation in the left flank/mid axillary area, no ecchymosis EXTREMITIES: Moves all 4 extremities spontaneously. No edema, No cyanosis. PSYCH: Normal affect, normal mood. SKIN: Warm, dry, normal turgor. No rashes or lesions noted. - INFECTION CONTROL TRAVEL OUTSIDE OF THE [place] IN LAST 30 DAYS: No Course - Re-evaluation Re-evalutation: 01/22/19 13:27 Chest x-ray and rib series did not show any evidence of acute fracture or rib dislocation. It is most likely a soft tissue injury. I explained to patient that these can be significantly painful and she should use ibuprofen 600 mg every 6 hours and/or Tylenol 1000 mg every 6 hours for pain. I also explained she could purchase some [id number] Aspercreme. Patient agrees with the plan is stable for discharge. - Vital Signs Vital signs: Temp Pulse Resp BP Pulse Ox 98.4 F 97 18 136/78 H 99 01/22/19 11:41 01/22/19 11:41 01/22/19 11:41 01/22/19 11:41 01/22/19 11:41 Discharge - Discharge Clinical Impression: Left flank pain Condition: Good Disposition: HOME, SELF-CARE Additional Instructions: You have been seen in the Emergency Department (ED) today for back pain. Your workup and exam have not shown any acute abnormalities and you are likely suffering from bruising of the muscle or a muscle strain, but there is no treatment that will fix your symptoms at this time. Please take Motrin 600 mg every 6 hours and/or Tylenol every 6 hours for pain/inflammation. You should also purchase a local lidocaine cream such as "aspercreme with lidocaine" and use per bottle instructions to the affected area. Apply heat to the area as often as you are able. Continue to keep active and avoid prolonged periods of bed rest. Please follow up with your doctor as soon as possible regarding today's ED visit and your back pain. Return to the ED for worsening back pain, fever, weakness or numbness of either leg, or if you develop either (1) an inability to urinate or have bowel movements, or (2) loss of your ability to control your bathroom functions (if you start having "accidents"), or if you develop other new symptoms that concern you.
--- NOTE | 2019-01-22 13:25 | RADIOLOGY REPORT (SQ) ---
EXAM DESCRIPTION: RIBS LEFT W/PA CHEST COMPLETED DATE/TIME: 01/22/2019 1:00 pm REASON FOR STUDY: trauma left axillary region lower ribs COMPARISON: None. TECHNIQUE: Frontal view of the chest and additional views of the left ribs acquired. NUMBER OF VIEWS: Three view. LIMITATIONS: None. FINDINGS: FRONTAL CXR: The cardiomediastinal silhouette and pulmonary vasculature are within normal limits. There is no consolidation, pleural effusion or pneumothorax. RIBS: No displaced rib fractures. OTHER: No other finding. IMPRESSION: 1. No acute cardiopulmonary process. 2. No displaced rib fractures. COMMENT: SITE OF TRAUMA/COMPLAINT MARKED/STAMP COMPLETED: NO. TECHNICAL DOCUMENTATION: JOB ID: [id number] [employer]- All Rights Reserved Reading location - IP/workstation name: [email or web address]
[2019-01-22 13:43] VITALS: BP 136/76
== END 2019-01-22 13:43 | disposition home or self-care (01) ==
LOC: ER 11:03
DX: R10.9 Unspecified abdominal pain (principal); R07.81 Pleurodynia; W20.8XXA Other cause of strike by thrown, projected or falling object, initial encounter; Y93.89 Activity, other specified
CPT/HCPCS: 99284; 96372; 71101; J1885; J3490